=== PATIENT | male | born 1955 | race Caucasian/White ===

== ENCOUNTER 2020-04-21 21:45 | Emergency (ER) | payer MEDICAID, OTHER ==
[~2020-04-21] VITALS: Ht 180.3 cm; Wt 77.1 kg
[2020-04-21 21:58] VITALS: BP 162/11
== END 2020-04-21 22:28 | disposition home or self-care (01) ==
LOC: ER 21:48
DX: R04.0 Epistaxis (principal); I10 Essential (primary) hypertension; Z76.0 Encounter for issue of repeat prescription; E78.5 Hyperlipidemia, unspecified